=== PATIENT | male | born 1995 | race Hispanic/Latino ===

== ENCOUNTER 2017-08-06 14:59 | Emergency (ER) | payer BC ==
[2017-08-06] MEDS ORDERED: Acetaminophen 500 MG TAB ONE (15:43)
== END 2017-08-06 16:00 | disposition home or self-care (01) ==
LOC: NAV ERS 14:59
DX: K52.9 Noninfective gastroenteritis and colitis, unspecified (principal); F17.210 Nicotine dependence, cigarettes, uncomplicated
CPT/HCPCS: 99284